=== PATIENT | female | born 1985 | race Caucasian/White ===

== ENCOUNTER 2017-12-19 00:32 | Outpatient (CLI) | payer MEDICAID ==
[2017-12-19] MEDS: FAMOTIDINE 20 MG TAB PO (03:05)
[2017-12-19] MEDS: AL HYDROX/MG HYDROX/SIMETH 30 ML CUP PO (03:05)
== END 2017-12-19 03:53 | disposition home or self-care (01) ==
LOC: OBT 00:32 → L-D 00:32 → OBT 03:53
DX: O24.419 Gestational diabetes mellitus in pregnancy, unspecified control (principal); O24.414 Gestational diabetes mellitus in pregnancy, insulin controlled; O16.3 Unspecified maternal hypertension, third trimester; Z3A.33 33 weeks gestation of pregnancy
CPT/HCPCS: Z7500

== ENCOUNTER 2018-01-20 09:17 | Inpatient (IN) | payer MEDICAID ==
[2018-01-20] MEDS: DEXTROSE 5%-LR 1,000 ML IV ×2 (09:38→17:38)
[2018-01-20] MEDS ORDERED: LACTATED RINGER'S 1,000 ML IV (09:38)
[2018-01-20] MEDS ORDERED: IBUPROFEN 600 MG TAB PO (10:00)
[2018-01-20] MEDS ORDERED: METHYLERGONOVINE 0.2 MG INJ IM (10:00)
[2018-01-20] MEDS ORDERED: BUTORPHANOL 2 MG INJ IV (10:00)
[2018-01-20] MEDS ORDERED: BUTORPHANOL 1 MG INJ IV (10:00)
[2018-01-20] MEDS ORDERED: MISOPROSTOL 200 MCG TAB PR (10:00)
[2018-01-20] MEDS ORDERED: CARBOPROST 250 MCG INJ IM (10:00)
[2018-01-20] MEDS ORDERED: OXYTOCIN 30 UNITS/LR 500 ML IV (10:00)
[2018-01-20 10:41] LABS: ADD MAN DIFF? NO
[2018-01-20 10:47] LABS: WHITE BLOOD COUNT 5.6 10^3/ul (4.8-10.8)
[2018-01-20 10:47] LABS: BASOPHILS % 0.4 % (0.0-2.0); EOSINOPHILS # 0.1 10^3/ul (0.0-0.5); EOSINOPHILS % 1.8 % (0.0-7.0); HEMATOCRIT 31.1 % (37.0-47.0); HEMOGLOBIN 10.9 g/dl (12.0-16.0); LYMPHOCYTES # 1.5 10^3/ul (0.8-2.9); LYMPHOCYTES % 27.1 % (15.0-51.0); MEAN CORPUSCULAR HEMOGLOBIN 29.6 pg (29.0-33.0); MEAN CORPUSCULAR VOLUME 84.5 fl (82.0-101.0); MEAN PLATELET VOLUME 12.7 fl (7.4-10.4); MONOCYTE # 0.4 10^3/ul (0.3-0.9); MONOCYTES % 6.6 % (0.0-11.0); NEUTROPHIL # 3.6 10^3/ul (1.6-7.5); NEUTROPHILS % 63.9 % (39.0-77.0); PLATELET COUNT 160 10^3/UL (140-415); RED BLOOD COUNT 3.68 10^6/ul (4.20-5.40); RED CELL DISTRIBUTION WIDTH 13.2 % (11.5-14.5)
[2018-01-20] MEDS: LACTATED RINGER'S 1,000 ML IV ×2 (11:08→20:46)
[2018-01-20] MEDS: AMPICILLIN 2 GM/NS (PMX) 100 ML IV (11:16)
[2018-01-20 11:21] LABS: GLUCOSE 108 mg/dl (70-220)
[2018-01-20 11:22] LABS: INR 0.89; PROTIME 12.1 Sec (11.9-14.9); PT RATIO 0.9
[2018-01-20 11:23] LABS: PARTIAL THROMBOPLASTIN TIME 27.8 Sec (25.0-35.0)
[2018-01-20 12:58] LABS: ADD UMIC YES; UR ASCORBIC ACID NEGATIVE (NEGATIVE); UR BILIRUBIN (Dip) NEGATIVE (NEGATIVE); UR BLOOD (Dip) NEGATIVE (NEGATIVE); UR CLARITY CLEAR (CLEAR); UR COLOR STRAW (YELLOW); UR GLUCOSE (Dip) NEGATIVE (NEGATIVE); UR KETONES (Dip) NEGATIVE (NEGATIVE); UR LEUKOCYTE ESTERASE (Dip) TRACE Leu/ul (NEGATIVE); UR NITRITE (Dip) NEGATIVE (NEGATIVE); UR RBC 0 /HPF (0-5); UR SPECIFIC GRAVITY (Dip) 1.006 (1.003-1.030); UR SQUAMOUS EPITHELIAL CELL FEW /HPF (FEW); UR TOTAL PROTEIN (Dip) NEGATIVE (NEGATIVE); UR UROBILINOGEN (Dip) NEGATIVE (NEGATIVE); UR WBC 1 /HPF (0-5)
[2018-01-20 13:05] LABS: ALANINE AMINOTRANSFERASE 19 IU/L (13-69); ALBUMIN 3.3 g/dl (3.3-4.9); ALBUMIN/GLOBULIN RATIO 0.97; ALKALINE PHOSPHATASE 179 IU/L (42-121); ANION GAP 14 (8-16); ASPARTATE AMINO TRANSFERASE 20 IU/L (15-46); BILIRUBIN,INDIRECT 0.5 mg/dl (0-1.1); BILIRUBIN,TOTAL 0.5 mg/dl (0.2-1.3); BLOOD UREA NITROGEN 13 mg/dl (7-20); CALCIUM 9.1 mg/dl (8.4-10.2); CARBON DIOXIDE 20 mmol/L (21-31); CHLORIDE 108 mmol/L (97-110); CREATININE 0.61 mg/dl (0.44-1.00); GLUCOSE 106 mg/dl (70-220); POTASSIUM 3.8 mmol/L (3.5-5.1); SODIUM 138 mmol/L (135-144); TOTAL PROTEIN 6.7 g/dl (6.1-8.1); URIC ACID 5.3 mg/dl (3.1-7.9)
[2018-01-20] MEDS: AMPICILLIN 1 GM/NS (PMX) 50 ML IV ×3 (15:26→23:31)
[2018-01-20] MEDS: DINOPROSTONE 10 MG VAG SUPP VAG (15:38)
[2018-01-20] MEDS ORDERED: MINERAL OIL LIGHT 10 ML VIAL TOP (20:30)
[2018-01-20] MEDS: LABETALOL 100 MG TAB PO (21:09)
[2018-01-20 23:01] LABS: RAPID PLASMA REAGIN NONREACTIVE (NR)
[2018-01-21 00:47] LABS: HEPATITIS B SURFACE ANTIGEN NEGATIVE (NEGATIVE)
[2018-01-21] MEDS: DEXTROSE 5%-LR 1,000 ML IV ×3 (01:38→17:38)
[2018-01-21] MEDS: AMPICILLIN 1 GM/NS (PMX) 50 ML IV ×6 (03:44→19:44)
[2018-01-21] MEDS: LACTATED RINGER'S 1,000 ML IV ×3 (06:10→22:18)
[2018-01-21] MEDS: LABETALOL 100 MG TAB PO ×2 (09:24→21:03)
[2018-01-21] MEDS: DINOPROSTONE 10 MG VAG SUPP VAG (17:53)
[2018-01-22] MEDS: AMPICILLIN 1 GM/NS (PMX) 50 ML IV ×6 (00:01→19:55)
[2018-01-22] MEDS: DEXTROSE 5%-LR 1,000 ML IV ×3 (08:00→17:38)
[2018-01-22] MEDS: LACTATED RINGER'S 1,000 ML IV ×3 (08:18→17:31)
[2018-01-22] MEDS: LABETALOL 100 MG TAB PO ×2 (09:13→21:08)
[2018-01-22] MEDS: MISOPROSTOL 25 MCG CAPSULE PO ×3 (14:51→23:10)
[2018-01-22] MEDS ORDERED: MISOPROSTOL 25 MCG CAPSULE PO (17:30)
[2018-01-23] MEDS: AMPICILLIN 1 GM/NS (PMX) 50 ML IV ×4 (00:02→11:59)
[2018-01-23] MEDS: MISOPROSTOL 25 MCG CAPSULE PO ×3 (03:20→10:30)
[2018-01-23] MEDS: LACTATED RINGER'S 1,000 ML IV (03:22)
[2018-01-23] MEDS: LABETALOL 100 MG TAB PO ×3 (09:00→22:00)
[2018-01-23] MEDS: OXYTOCIN 30 UNITS/LR 500 ML IV ×5 (12:55→21:04)
[2018-01-23] MEDS ORDERED: OXYTOCIN 30 UNITS/LR 500 ML IV ×2 (13:00→22:00)
[2018-01-23] MEDS ORDERED: OXYTOCIN 30 UNITS in LACTATED RINGER'S 497 ML IV (13:00)
[2018-01-23] MEDS ORDERED: FENTAnyl 2MCG/ML-ROPIV 0.2% 100 ML (14:37)
[2018-01-23] MEDS ORDERED: ONDANSETRON 4 MG INJ IV (15:00)
[2018-01-23] MEDS ORDERED: FENTAnyl 2MCG/ML-ROPIV 0.2% 100 ML BAG EPI (15:00)
[2018-01-23] MEDS ORDERED: DIPHENHYDRAMINE 50 MG INJ IV (15:00)
[2018-01-23] MEDS ORDERED: NALOXONE (0.4 MG/ML) INJ IV (15:00)
[2018-01-23] MEDS: LIDOCAINE 1% (MPF) 30 ML INJ INJ (16:33)
[2018-01-23] MEDS: LABETALOL 200 MG TAB PO (16:59)
[2018-01-23] MEDS ORDERED: MAGNESIUM SULFATE 1 GM/D5W 100 ML IVPB (18:30)
[2018-01-23] MEDS: MAGNESIUM SULFATE 3 GM in DEXTROSE 5% 100 ML IVPB (18:52)
[2018-01-23] MEDS: MAGNESIUM SULFATE 20 GM/500 ML 500 ML IV (19:22)
[2018-01-23] MEDS ORDERED: LABETALOL 200 MG TAB PO (21:00)
[2018-01-23] MEDS ORDERED: HYDROCODONE/APAP (5/325) TAB PO ×2 (22:00)
[2018-01-23] MEDS ORDERED: METHYLERGONOVINE 0.2 MG INJ IM (22:00)
[2018-01-23] MEDS ORDERED: DIBUCAINE 1% 30 GM OINT PR (22:00)
[2018-01-23] MEDS ORDERED: CARBOPROST 250 MCG INJ IM (22:00)
[2018-01-23] MEDS ORDERED: BENZOCAINE 20% 56 ML SPRAY TOP (22:00)
[2018-01-23] MEDS ORDERED: ZOLPIDEM 5 MG TAB PO (22:00)
[2018-01-23] MEDS ORDERED: MISOPROSTOL 200 MCG TAB PR (22:00)
[2018-01-23] MEDS: CEPHALEXIN 500 MG CAP PO (23:48)
[2018-01-23] MEDS: metFORMIN (XR) 500 MG TAB PO (23:48)
[2018-01-23] MEDS: IBUPROFEN 600 MG TAB PO (23:48)
[2018-01-24] MEDS ORDERED: GLUCOSE GEL 15 GRAM TUBE BUCCAL (00:15)
[2018-01-24] MEDS ORDERED: GLUCOSE GEL 15 GRAM TUBE PO ×2 (00:15)
[2018-01-24] MEDS ORDERED: DEXTROSE 50% 50 ML SYRINGE IV ×2 (00:15)
[2018-01-24] MEDS ORDERED: GLUCAGON 1 MG INJ IM (00:15)
[2018-01-24] MEDS: LACTATED RINGER'S 1,000 ML IV* (02:15)
[2018-01-24] MEDS: LANOLIN 7 GM TUBE TOP (05:41)
[2018-01-24] MEDS: CEPHALEXIN 500 MG CAP PO ×4 (05:41→23:41)
[2018-01-24] MEDS: IBUPROFEN 600 MG TAB PO ×4 (05:41→23:41)
[2018-01-24] MEDS: WITCH HAZEL/GLYCERIN PAD PR (05:42)
[2018-01-24] MEDS ORDERED: ACCU-CHEK XX (06:00)
[2018-01-24 08:57] LABS: ADD MAN DIFF? NO
[2018-01-24] MEDS: MAGNESIUM HYDROXIDE 30ML CUP PO ×2 (08:58→21:00)
[2018-01-24] MEDS: metFORMIN (XR) 500 MG TAB PO ×2 (08:58→21:02)
[2018-01-24] MEDS: LABETALOL 100 MG TAB PO ×2 (08:59→21:02)
[2018-01-24] MEDS: SENNA/DOCUSATE NA (8.6MG/50MG) TAB PO ×2 (08:59→21:02)
[2018-01-24 09:03] LABS: BASOPHILS % 0.3 % (0.0-2.0); EOSINOPHILS # 0.1 10^3/ul (0.0-0.5); EOSINOPHILS % 0.6 % (0.0-7.0); HEMATOCRIT 27.5 % (37.0-47.0); HEMOGLOBIN 9.7 g/dl (12.0-16.0); LYMPHOCYTES # 1.4 10^3/ul (0.8-2.9); LYMPHOCYTES % 16.3 % (15.0-51.0); MEAN CORPUSCULAR HEMOGLOBIN 30.1 pg (29.0-33.0); MEAN CORPUSCULAR HGB CONC 35.3 g/dl (32.0-37.0); MEAN CORPUSCULAR VOLUME 85.4 fl (82.0-101.0); MEAN PLATELET VOLUME 12.3 fl (7.4-10.4); MONOCYTE # 0.4 10^3/ul (0.3-0.9); MONOCYTES % 4.8 % (0.0-11.0); NEUTROPHIL # 6.7 10^3/ul (1.6-7.5); NEUTROPHILS % 77.4 % (39.0-77.0); PLATELET COUNT 137 10^3/UL (140-415); RED BLOOD COUNT 3.22 10^6/ul (4.20-5.40); RED CELL DISTRIBUTION WIDTH 12.8 % (11.5-14.5)
[2018-01-24 09:03] LABS: WHITE BLOOD COUNT 8.7 10^3/ul (4.8-10.8)
[2018-01-24 09:17] LABS: MAGNESIUM 3.5 mg/dl (1.7-2.5)
[2018-01-25] MEDS: CEPHALEXIN 500 MG CAP PO ×2 (05:28→13:00)
[2018-01-25] MEDS: IBUPROFEN 600 MG TAB PO ×2 (05:28→13:00)
[2018-01-25] MEDS: metFORMIN (XR) 500 MG TAB PO (08:35)
[2018-01-25] MEDS: LABETALOL 100 MG TAB PO (08:38)
[2018-01-25] MEDS: SENNA/DOCUSATE NA (8.6MG/50MG) TAB PO (08:40)
[2018-01-25] MEDS: MAGNESIUM HYDROXIDE 30ML CUP PO (08:40)
[2018-01-25] MEDS: MEASLES,MUMPS,RUBELLA VACCINE INJ SC* (09:00)
[2018-01-25] MEDS: VARICELLA VACCINE LIVE/PF 1,350 UNIT/0.5 ML ML SC* (09:00)
[2018-01-25] MEDS: DIPHTH/TET/ACEL PERTUSS (ADULT) 0.5 ML VIAL IM* (14:59)
== END 2018-01-25 17:56 | disposition home or self-care (01) | DRG 774 ==
LOC: L-D 09:17 → PP1 01-23 22:14
PROVIDERS: Obstetrics & Gynecology
PROC: 10E0XZZ Delivery of Products of Conception, External Approach (ICD-10-PCS; principal; 2018-01-23)
PROC: 0HQ9XZZ Repair Perineum Skin, External Approach (ICD-10-PCS; 2018-01-23)
PROC: 3E0P7VZ Introduction of Hormone into Female Reproductive, Via Natural or Artificial Opening (ICD-10-PCS; 2018-01-23)
DX: O24.420 Gestational diabetes mellitus in childbirth, diet controlled (principal); O10.92 Unspecified pre-existing hypertension complicating childbirth; O70.9 Perineal laceration during delivery, unspecified; Z37.0 Single live birth; Z3A.38 38 weeks gestation of pregnancy; Z37.1 Single stillbirth
CPT/HCPCS: 62319; 76815; 80053; 81001; 82947; 82962; 83735; 84560; 85025; 85384; 85610; 85730; 86592; 86850; 86900; 86901; 87340; 93970